=== PATIENT | male | born 1945 | race Caucasian/White ===

== ENCOUNTER 2016-05-18 20:20 | Emergency (ER) | payer MEDICARE, OTHER ==
[2016-05-18 20:21] VITALS: BMI 34.0
[2016-05-18 20:36] VITALS: TEMP 97.8
--- NOTE | 2016-05-18 21:12 | DIRPT ---
CLINICAL DATA: Mid left forearm pain and swelling. The patient suffered an injury while using an auger today. Initial encounter. EXAM: LEFT FOREARM - 2 VIEW COMPARISON: None. FINDINGS: No acute bony or joint abnormality is identified. Soft tissue swelling is seen along the distal diaphysis of the radius most compatible with hematoma given history of trauma. IMPRESSION: Likely hematoma distal left forearm. Negative for fracture foreign body. Electronically Signed By: Earl Cardona M.D. On: 05/18/2016 21:10
[2016-05-18 21:16] VITALS: BP 105/55; PULSE 81
--- NOTE | 2016-05-18 21:23 | DIRPT ---
CLINICAL DATA: Twisting injury to right hand while using an Auger. Right thumb pain radiates to the palm. Initial encounter. EXAM: RIGHT HAND - COMPLETE 3+ VIEW COMPARISON: None. FINDINGS: There is suspicion of mild acute impaction injury involving the base of the first metacarpal, given cortical irregularity. However, this is difficult to fully assess given underlying osteoarthritis. Would correlate for associated symptoms. The joint spaces are otherwise preserved. The carpal rows are otherwise intact, and demonstrate normal alignment. No significant soft tissue abnormalities are characterized on radiograph. IMPRESSION: Suspicion of mild acute impaction injury involving the base of the first metacarpal, given cortical irregularity. However, this is difficult to fully characterize given underlying osteoarthritis. Would correlate for associated symptoms. Electronically Signed By: Markie Morejon M.D. On: 05/18/2016 21:21
--- NOTE | 2016-05-18 21:28 | EDPRACDOC ---
- General Information Chief Complaint: Upper Extremity Injury Stated Complaint: ARM INJURY Time Seen by Provider: 05/18/16 21:13 Information Source: Patient Mode of Arrival: Car Home Medications: Home Medications Albuterol Sulfate [Proventil Hfa] 90 mcg INH BID 02/11/15 Albuterol Sulfate [Ventolin] PRN 02/11/15 Alfuzosin HCl [Uroxatral] 10 mg PO DAILY 02/11/15 Allergy Shots IN .Q3 WEEKS 02/11/15 Allopurinol 1 tab PO DAILY 02/11/15 Amoxicillin 500 mg PO PRN 02/11/15 Armodafinil [Nuvigil] 1 tab PO BID 02/11/15 Aspirin 325 mg PO DAILY 02/11/15 Azelastine HCl [Astelin] 137 mcg JUAN DAILY 02/11/15 Azelastine/Fluticasone [Dymista Nasal [place]] 2 puff INH BID 02/11/15 Baclofen 10 mg PO TID 02/11/15 Budesonide/Formoterol Fumarate [Symbicort 160-4.5 Mcg Inhaler] 1 puff PO BID Bupropion HCl [Wellbutrin] 2 tabs PO DAILY 02/11/15 Ca Carbonate/Vitamin D3/Vit K [Calcium + D Soft Chewable Tab] 1 tab PO DAILY Cephalexin 1 tab PO BID 02/11/15 Cetirizine HCl [Zyrtec] 10 mg PO DAILY 02/11/15 Colchicine 1 tab PO TID 02/11/15 Cyanocobalamin (Vitamin B-12) [Cyanocobalamin Injection] 1,000 mg IM .[id number] Cyclobenzaprine HCl [Flexeril] 10 mg PO DAILY 02/11/15 Desoximetasone 0.25 % TOP PRN 02/11/15 Dextran 70/Hypromellose [Artificial Tears Drops] OU QID 02/11/15 Diclofenac Sodium [Voltaren 1% Topical Gel] 0.01 TOP TID 02/11/15 Doxycycline Monohydrate 100 mg PO BID 02/11/15 Ferrous Sulfate [Feosol] 325 mg PO DAILY 02/11/15 Fish Oil/Dha/Epa [Fish Oil 1,200 mg Fish Oil] 1 tab PO BID 02/11/15 Flunisolide 0.25 % JUAN BID 02/11/15 Fluticasone Propionate [Flovent Hfa-110] 110 mcg INH BID 02/11/15 Fluticasone/Salmeterol [Advair Hfa 115-21 Mcg Inhaler] 12 gm INH BID 02/11/15 Hydrocortisone-Pramoxine [Proctofoam Hc] 1 % NE BID 02/11/15 Ipratropium [place] [Atrovent] 2 spray JUAN BID 02/11/15 Ketoconazole [Nizoral] 2 % TOP DAILY 02/11/15 Levetiracetam [Keppra] 750 mg PO TID 02/11/15 Metronidazole 0.75 % TOP DAILY 02/11/15 Montelukast Sodium [Singulair] 10 mg PO DAILY 02/11/15 Multivitamin [Multivitamins] 1 tab PO BID 02/11/15 Omeprazole [Prilosec] 20 mg PO BID 02/11/15 Pratropium Br Nasil 0.06 % INH BID 02/11/15 Spironolactone [Aldactone] 25 mg PO BID 02/11/15 Sumatriptan Succinate [Imitrex] 199 mg PO DAILY 02/11/15 Urea [Urea 40] 40 % TOP 02/11/15 Virednisone 5 mg PO DAILY 02/11/15 Vostin 0.05 % OU DAILY 02/11/15 Hydrocodone Bit/Acetaminophen [Hydrocodon-Acetaminophen 5-325] 1 tab PO Q6H PRN #20 tab 05/18/16 Allergies/Adverse Reactions: Allergies Allergy/AdvReac Type Severity Reaction Status Date / Time adhesive Allergy Rash-Locali Verified 02/11/15 12:58 zed atorvastatin calcium Allergy Unknown/See Verified 02/11/15 12:58 [From Lipitor] Comments budesonide [From Symbicort] Allergy See Verified 02/11/15 12:58 Comments clarithromycin [From Biaxin] Allergy Unknown/See Verified 02/11/15 12:58 Comments formoterol fumarate Allergy See Verified 02/11/15 12:58 [From Symbicort] Comments dust and mold Allergy Itching Uncoded 02/11/15 12:59 - History of Present 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 PT HAS LARGE HEMATOMA TO LEFT FOREARM. Location: Reports: Dorsal, Medial (LT FOREARM HEMATOMA) Dominant Side: Reports: Right Mechanism: Reports: Blunt Trauma Circumstances: Reports: Work Related Pain Severity: Reports: Mild Associated Signs and Symptoms: Reports: Other (LT FOREARM HEMATOMA, RIGHT THUMB PAIN) ED Past Medical History - History Reviewed Yes Nurses notes reviewed and agree except as marked Travel Outside of [place] in the Last 3 Months?: No - Patient Medical History Neurological History: Reports: Cerebrovascular Accident (RESOLVED) Cardiac History: Reports: Hypertension, Cardiac Catheterization (no blockages 2005), Hypercholesterolemia, Syncope Respiratory History: Reports: Asthma, COPD (CHRONIC BRONCHITIS), Pneumonia GI/ History: Reports: Urinary Tract Infection, Kidney Stones, Gastroesophageal Reflux, Pancreatitis Musculoskeletal History: Reports: Arthritis (OA), Gout Psychological History: Reports: Depression, Anxiety Systemic History: Reports: Diabetes Surgical History: Reports: Cardiac Catheterization (no blockages 2005), Hernia Surgery, Tonsillectomy/Adnoidectomy - Family Medical History Reports: Hypertension (father), Cardiac Disorders (father, CHF). Denies: Diabetes, Cancer, Stroke - Social Medical History Smoking Status: Never smoker ETOH: None Substance Abuse: None Lives With: Other Lives In: Home EDM Review of Systems - Review of Systems ROS Negative Except as Marked: Yes All systems reviewed and were negative except as marked Constitutional: No Symptoms Reported. negative: Fever, Chills, Weakness, Fatigue, Loss of Appetite Eyes: No Symptoms Reported. negative: Redness, Blurred Vision, Double Vision, Discharge, Pain, Light Sensitive, Photophobia Ears: No Symptoms Reported. negative: Pain, Hearing Loss, Drainage, Ear Pulling Throat: No Symptoms Reported. negative: Pain, Swelling Nose: No Symptoms Reported. negative: Congestion, Bleeding, Discharge, Injection, Swelling, Deformity, Ecchymosis, Tender, Abrasion, Laceration Mouth: No Symptoms Reported. negative: Pain, Drooling Respiratory: No Symptoms Reported. negative: Cough, Brassy Cough, Barky Cough, Shortness of Breath, Wheezing, Hemoptysis Cardiovascular: No Symptoms Reported. negative: Chest Pain, Palpitations, Syncope, Edema, Orthopnea, PND, Skin Mottling, Cyanosis Gastrointestinal: No Symptoms Reported. negative: Pain, Constipation, Nausea, Vomiting, Diarrhea, Melena, Formula Intolerance Genitourinary: No Symptoms Reported. negative: Dysuria, Hematuria, Frequency, Discharge, Bleeding, Testicular Pain, Neurological: No Symptoms Reported. negative: Headache, Dizziness, Seizure, Numbness, Weakness, Speech Difficulty, Gait Difficulty Musculoskeletal: Forearm (LT HEMATOMA), Hand (RT THUMB PAIN). negative: Arm, Ankle, Back, Chestwall, Elbow, Femur, Foot, Hip, Knee, Leg, Neck, Pelvis, Ribs, Shoulder, Wrist Integumentary: No Symptoms Reported. negative: Itching, Rash, Bruising, Wound Allergic/Immunologic: No Symptoms Reported. negative: Hives, Itching Hematologic: No Symptoms Reported. negative: Lymphadenopathy, Easy Bruising, Easy Bleeding Endocrine: No Symptoms Reported. negative: Weight Gain, Weight Loss Psychiatric: No Symptoms Reported. negative: Anxiety, Depression, Hallucinations, Insomnia, Suicidal - Physical Exam Constitutional: No apparent distress, Alert (Awake) Oriented to: Time, Person, Place Last recorded Vital Signs: Last Vital Signs Temp 97.8 F 05/18/16 20:34 Pulse 81 05/18/16 21:15 Resp 18 05/18/16 21:15 BP 105/55 L 05/18/16 21:15 Pulse Ox 96 05/18/16 21:15 Oxygen Pulse Oxygen Saturation 96 O2 Device Room Air Oxygen Flow Rate Fraction of Inspired Oxygen ( FIO2) - HEENT Head: Normal ( normocephalic) Eye Exam: Normal (PERRL, EOMI, Sclera white) Oropharynx: Normal (Pharynx:Moist without exudate,Gums-no swelling) Tympanic Membrane: Normal ENT EAC: Normal TMJ: Normal Nose: No Symptoms Reported (septum midline) Neck: Normal (FROM, trachea at midline) - Respiratory/Cardiovascular Respiratory: Normal - CTA (BBS clear to auscultation without adventitious sounds ) Cardiovascular: Normal (RRR without murmur, gallop or rub) - GI Auscultation: Normal (NABS) Palpation: Normal (Soft,No rebound or guarding, non distended) Tenderness: Non tender Matamoros's Sign: Negative - Bladder: Normal - Musculoskeletal Back: Normal (Non-Tender) Extremities: Normal (Normal tone, Pulses 2+ No cyanosis or edema, FROM) Musculoskeletal Comment: LEFT FOREARM [place] HEMATOMA. RIGHT THUMB PAIN AT REST AND WITH ROM. - Integumentary Skin: Normal, Warm, Dry Lymphatics: Normal (no adenopathy) - Neurologic Memory Impaired: Normal Motor Function: Normal (Normal tone, Pulses 2+ No cyanosis or edema, FROM) Cranial Nerve: Normal (CN II-X11 intact sensation, strength 5/5) Cerebellar: Normal Mood Description: Normal Perception: Normal ED Wrist Problem Exam Wrist Symptoms: Other (LT FOREARM HEMATOMA) Hand Symptoms: Other (RT THUMB PAIN WORSE WITH ROM) Forearm Symptoms: Swelling (HEMATOMA) Distal Function/Circulation: Normal - Integumentary Skin: Ecchymosis Lymphatics: Normal ED Procedures - Splinting THUMB Location: RT THUMB Pre-Made Type: THUMB SPICA Splint: thumb spica Pre-Proc Neuro Vasc Exam: normal Post-Proc Neuro Vasc Exam: normal ED Wrist Problem MDM - Differential Diagnosis Differential Diagnosis: Contusion, Dislocation, Fracture-Carpal, Fracture-Radius /Ulna, Sprain - Diagnostic Imaging FOREARM Image interpreted by: Radiologist Diagnostic Imaging Comments: IMPRESSION: Likely hematoma distal left forearm. Negative for fracture foreign body. HAND Image interpreted by: Radiologist Diagnostic Imaging Comments: IMPRESSION: Suspicion of mild acute impaction injury involving the base of the first metacarpal, given cortical irregularity. However, this is difficult to fully characterize given underlying osteoarthritis. Would correlate for associated symptoms. Decision Time to Discharge: 21:31 - Departure Disposition: Home Condition: Stable Final Diagnosis: RIGHT THUMB FRACTURE Traumatic hematoma of left forearm Qualifiers: Encounter type: initial encounter Qualified Code(s): S50.12XA - Contusion of left forearm, initial encounter Instructions: RICE: Routine Care for Injuries, Thumb Fracture (ED), Contusion in Adults (ED), Hematoma (ED) Education/Counseling Given To: Patient Education/Counseling Given Regarding: Diagnosis, Treatment, Prognosis, Follow Up Referrals: Osiris Bloom DO [Primary Care Provider] - One Week Darrel Messina MD [Staff Physician] - One Week Prescriptions: Hydrocodone Bit/Acetaminophen [Hydrocodon-Acetaminophen 5-325] 1 tab PO Q6H PRN #20 tab PRN Reason: Pain Additional Instructions: RICE. HOLD ASPIRIN FOR 2 DAYS, THEN RESTART.
== END 2016-05-18 22:10 | disposition home or self-care (01) ==
LOC: ED 20:20
DX: S62.501A Fracture of unspecified phalanx of right thumb, initial encounter for closed fracture (principal); T14.8 Other injury of unspecified body region; X58.XXXA Exposure to other specified factors, initial encounter; Y93.H2 Activity, gardening and landscaping
CPT/HCPCS: 29130; 99282